=== PATIENT | female | born 1965 | race African-American/Black ===

== ENCOUNTER 2018-06-03 22:12 | Emergency (ER) | payer MEDICAID ==
[~2018-06-03] VITALS: Ht 154.9 cm; Wt 71.0 kg
[~2018-06-03 22:12] MED LIST: CARV6.2548 PO; HYDR12.529 PO; LISI10TA5 PO
[2018-06-03] MEDS ORDERED: DIPHENHYDRAMINE 25MG CAPSULE PO ONE (23:45)
[2018-06-04 00:01] VITALS: BP 132/87
== END 2018-06-04 00:01 | disposition home or self-care (01) ==
LOC: ER 22:12
DX: L24.3 Irritant contact dermatitis due to cosmetics (principal); I10 Essential (primary) hypertension; F17.200 Nicotine dependence, unspecified, uncomplicated; Z90.710 Acquired absence of both cervix and uterus; Z79.01 Long term (current) use of anticoagulants; T50.905A Adverse effect of unspecified drugs, medicaments and biological substances, initial encounter; Y92.018 Other place in single-family (private) house as the place of occurrence of the external cause
CPT/HCPCS: 99282; Q0163

== ENCOUNTER 2022-10-13 12:17 | Emergency (ER) | payer MEDICAID ==
[~2022-10-13] VITALS: Ht 154.9 cm; Wt 77.0 kg
[~2022-10-13 12:17] MED LIST changes: +LISI10TA26 PO; -LISI10TA5 PO
[2022-10-13] MEDS ORDERED: KETOROLAC 60MG/2ML VIAL IM ONE (15:30)
[2022-10-13 16:43] VITALS: BP 148/93
== END 2022-10-13 17:13 | disposition home or self-care (01) ==
LOC: ER 12:17
DX: S16.1XXA Strain of muscle, fascia and tendon at neck level, initial encounter (principal); M54.9 Dorsalgia, unspecified; R51.9 Headache, unspecified; M25.572 Pain in left ankle and joints of left foot; S93.491A Sprain of other ligament of right ankle, initial encounter; I10 Essential (primary) hypertension; V44.1XXA Car passenger injured in collision with heavy transport vehicle or bus in nontraffic accident, initial encounter; Y93.89 Activity, other specified; Y92.488 Other paved roadways as the place of occurrence of the external cause
CPT/HCPCS: 96372; 99283; J1885